=== PATIENT | male | born 1945 | race Caucasian/White ===

== ENCOUNTER 2023-10-17 13:39 | Emergency (ER) | payer MEDICARE ==
[~2023-10-17] VITALS: Ht 170.2 cm; Wt 79.5 kg
[2023-10-17 13:47] VITALS: BP 130/73
[2023-10-17 14:04] LABS: BASO% 0.3 % (0-3); EOS% 0.6 % (0-8); HEMATOCRIT 45.4 % (39.0-50.0); HEMOGLOBIN 16.1 g/dl (14.0-18.0); IMMATURE GRANULOCYTES 0.4 % (0.0-5.0); LYMPH% 4.5 % (15-41); MEAN CELL VOLUME 90.3 fL CALC (80.0-100.0); MEAN CORPUSCULAR HGB CONC 35.5 g/dL CAL (32.0-36.0); MONO% 7.9 % (2-13); NEUT# 7.73 thou/uL (1.82-7.42); NEUT% 86.3 % (42-76); RED BLOOD COUNT 5.03 mill/uL (4.70-6.10); RED CELL DISTRI WIDTH 11.6 % (11.5-15.5)
[2023-10-17 14:17] LABS: ALBUMIN 3.9 g/dL (3.2-5.0); ALKALINE PHOSPHATASE 97 u/l (38-126); ANION GAP 8 (6-22 (CALC)); BILIRUBIN, TOTAL 1.1 mg/dL (0.2-1.3); BUN 14 mg/dL (8-23); BUN/CREATININE RATIO 11 (12-20 (CALC)); CARBON DIOXIDE 27 mmol/l (22-30); CHLORIDE 107 mmol/l (95-108); CREATININE 1.2 mg/dL (0.7-1.3); ESTIMATED GFR 61 ML/MIN (>=90 (CALC)); SGOT/AST 30 u/l (19-48); SODIUM 137 mmol/l (137-146); TOTAL PROTEIN 6.2 g/dL (6.3-8.2)
[2023-10-17] MEDS ORDERED: PAXLOVID PO (15:57)
[2023-10-17 16:07] VITALS: BP 130/73
== END 2023-10-17 16:10 | disposition home or self-care (01) ==
LOC: ED 13:39
PROVIDERS: Family Medicine
DX: U07.1 COVID-19 (principal); R42 Dizziness and giddiness; R53.83 Other fatigue; R53.1 Weakness; F50.00 Anorexia nervosa, unspecified; I10 Essential (primary) hypertension; Z72.0 Tobacco use